=== PATIENT | female | born 1950 | race African-American/Black ===

== ENCOUNTER → 2023-03-17 16:00 | Outpatient (REF) | payer OTHER, SELFPAY | LOC: WOUND 16:00 | PROVIDERS: ATTENDING PHYSICIAN Surgery; REFERRING PHYSICIAN Family Medicine | DX: I87.312 Chronic venous hypertension (idiopathic) with ulcer of left lower extremity (principal); L97.322 Non-pressure chronic ulcer of left ankle with fat layer exposed; I87.2 Venous insufficiency (chronic) (peripheral); F20.0 Paranoid schizophrenia | CPT/HCPCS: 11042; 29581 ==

== ENCOUNTER → 2023-03-20 11:55 | Outpatient (REF) | payer OTHER, SELFPAY | LOC: WOUND 11:55 | PROVIDERS: ATTENDING PHYSICIAN Surgery; REFERRING PHYSICIAN Family Medicine | DX: I87.312 Chronic venous hypertension (idiopathic) with ulcer of left lower extremity (principal); L97.322 Non-pressure chronic ulcer of left ankle with fat layer exposed; I87.2 Venous insufficiency (chronic) (peripheral) | CPT/HCPCS: 29581 ==

== ENCOUNTER → 2023-04-02 14:44 | Outpatient (REF) | payer OTHER, SELFPAY | LOC: WOUND 14:44 | PROVIDERS: ATTENDING PHYSICIAN Surgery; REFERRING PHYSICIAN Family Medicine | DX: I87.312 Chronic venous hypertension (idiopathic) with ulcer of left lower extremity (principal); L97.322 Non-pressure chronic ulcer of left ankle with fat layer exposed; I87.2 Venous insufficiency (chronic) (peripheral); F20.0 Paranoid schizophrenia | CPT/HCPCS: 11042; 97597 ==